=== PATIENT | female | born 1990 | race African-American/Black ===

== ENCOUNTER 2023-11-17 23:56 | Emergency (ER) | payer MEDICAID ==
[~2023-11-17] VITALS: Ht 154.9 cm; Wt 63.0 kg
[2023-11-18 00:34] VITALS: TEMP 98.5; O2SAT 98
[2023-11-18 02:57] VITALS: BP 100/49; PULSE 81; RESP 14
[2023-11-18] MEDS: KETOROLAC 15MG/ML VIAL IM NR (02:57)
[2023-11-18] MEDS: KETOROLAC 15MG/ML VIAL IM ONE (02:57)
[2023-11-18 03:13] LABS: CLARITY URINE CLEAR (CLEAR); COLOR URINE YELLOW (YELLOW); GLUCOSE URINE NEGATIVE (NEGATIVE); KETONES URINE TRACE (NEGATIVE); LEUKOCYTE ESTERASE URINE 1+ (NEGATIVE); NITRITE URINE NEGATIVE (NEGATIVE); OCCULT BLOOD URINE NEGATIVE (NEGATIVE); PROTEIN URINE NEGATIVE (NEGATIVE); SPECIFIC GRAVITY URINE 1.018 (1.005-1.030); UROBILINOGEN URINE 0.2 E.U./dL (0.2-1.0)
[2023-11-18 03:40] LABS: SQUAMOUS EPITHELIAL CELL URINE FEW /lpf (RARE/1+)
[2023-11-18 03:42] LABS: RBC URINE 0-2 /hpf (0-2); WBC URINE 0-2 /hpf (0-2)
[2023-11-18 03:45] LABS: BACTERIA URINE NONE SEEN
== END 2023-11-18 03:20 | disposition home or self-care (01) ==
LOC: ER 23:56
DX: R10.9 Unspecified abdominal pain (principal); R50.9 Fever, unspecified
CPT/HCPCS: 81025; 99283; 81003; J1885; Z7610

== ENCOUNTER 2023-12-23 00:24 | Emergency (ER) | payer MEDICAID, OTHER ==
[~2023-12-23] VITALS: Ht 154.9 cm; Wt 61.0 kg
[2023-12-23 01:09] VITALS: O2SAT 97
[2023-12-23 01:46] LABS: BASOPHILS % 0.7 % (0.0-2.0); EOSINOPHILS % 4.7 % (0.0-5.0); HEMATOCRIT. 37.7 % (36.0-48.0); HEMOGLOBIN. 12.6 g/dL (12.0-16.0); LYMPHOCYTES % 30.1 % (20.0-50.0); MEAN CORPUSCULAR HEMOGLOBIN 31.6 pg (28.0-32.0); MEAN CORPUSCULAR HGB CONC 33.3 g/dL (31.0-37.0); MEAN CORPUSCULAR VOLUME 94.7 fL (81.0-99.0); MEAN PLATELET VOLUME 8.8 fl (7.4-10.4); MONOCYTES % 11.2 % (2.0-8.0); NEUTROPHILS % 53.3 % (40.0-76.0); PLATELET 224 x1000/uL (130-400); RED BLOOD CELL COUNT 3.98 mill/uL (4.2-5.4); RED CELL DISTRIBUTION WIDTH 13.3 % (11.6-14.6); WHITE BLOOD COUNT 4.1 x1000/uL (4.5-11.0)
[2023-12-23 01:59] LABS: ALANINE AMINOTRANSFERASE 28 IU/L (10-49); ALBUMIN 4.8 g/dL (3.2-4.8); ASPARTATE AMINOTRANSFERASE 25 IU/L (<34); BILIRUBIN TOTAL 0.6 mg/dL (0.1-1.0); CALCIUM 9.3 mg/dL (8.7-10.4); CARBON DIOXIDE 26 mEq/L (21-32); CHLORIDE 105 mEq/L (98-107); CREATININE 0.9 mg/dL (0.6-1.0); GLUCOSE 98 mg/dL (70-105); POTASSIUM 3.7 mEq/L (3.5-5.1); PROTEIN TOTAL 8.5 g/dL (6.0-8.3); SODIUM 140 mEq/L (136-145)
[2023-12-23 02:31] LABS: TROPONIN I HIGH SENSITIVITY < 4 ng/L (3.0-34); UREA NITROGEN BLOOD < 5 mg/dL (9-23)
[2023-12-23 05:17] LABS: CLARITY URINE CLEAR (CLEAR); COLOR URINE YELLOW (YELLOW); GLUCOSE URINE NEGATIVE (NEGATIVE); KETONES URINE NEGATIVE (NEGATIVE); LEUKOCYTE ESTERASE URINE 3+ (NEGATIVE); NITRITE URINE NEGATIVE (NEGATIVE); OCCULT BLOOD URINE NEGATIVE (NEGATIVE); PROTEIN URINE NEGATIVE (NEGATIVE); UROBILINOGEN URINE 0.2 E.U./dL (0.2-1.0)
[2023-12-23 06:05] LABS: RBC URINE 0-2 /hpf (0-2); WBC URINE 25-50 /hpf (0-2)
[2023-12-23 06:11] LABS: BACTERIA URINE 1+; SQUAMOUS EPITHELIAL CELL URINE FEW /lpf (RARE/1+)
[2023-12-23] MEDS: SODIUM CHLORIDE 0.9% 1,000 ML IV ONE (07:22)
[2023-12-23] MEDS: CEFTRIAXONE 1GM/50ML 50 ML IV ONE (07:22)
[2023-12-23] MEDS ORDERED: CEFP200T13 MT (08:53)
[2023-12-23] MEDS: ACETAMINOPHEN 325MG TABLET PO ONE (09:24)
[2023-12-23] MEDS: KETOROLAC 30MG/ML VIAL IV ONE (09:26)
[2023-12-23 09:51] VITALS: BP 91/45; PULSE 80; RESP 12; TEMP 98.1
== END 2023-12-23 10:17 | disposition home or self-care (01) ==
LOC: ER 00:24
DX: N39.0 Urinary tract infection, site not specified (principal)
CPT/HCPCS: 99285; 96365; 71045; 96375; 80053; 81003; 81025; 85025; 87086; 87186; 84484; 87077; 36415; 93005; J0696; J1885; J7030